=== PATIENT | female | born 1965 | race Caucasian/White ===

== ENCOUNTER 2024-03-07 05:24 | Inpatient (IN) ==
[~2024-03-07] VITALS: Ht 165.1 cm; Wt 72.7 kg
[~2024-03-07 05:24] MED LIST: CYCL-448 PO; LEVO75 PO; OXYB-34 PO; PRAV10TA39 PO; PREG50 PO; [UNRECOGNIZED DRUG - CODE] TD
[2024-03-07 06:11] LABS: BASOPHILS % (AUTO) 1.3 % (0.0-2.0); EOSINOPHILS % (AUTO) 2.1 % (1.0-6.0); HEMATOCRIT 40.6 % (36-46); HEMOGLOBIN 13.5 g/dL (12.0-16.0); LYMPHOCYTES % (AUTO) 47.1 % (22.0-44.0); MEAN CORPUSCULAR HEMOGLOBIN 30.4 pg (26.0-34.0); MEAN CORPUSCULAR HGB CONC 33.3 G/dL (31.0-37.0); MEAN CORPUSCULAR VOLUME 91 fL (80-100); MONOCYTES # (AUTO) 0.5 K/uL (0.1-1.0); MONOCYTES % (AUTO) 8.3 % (2.0-9.0); NEUTROPHILS # (AUTO) 2.6 K/uL (1.8-7.7); NEUTROPHILS % (AUTO) 41.2 % (40.0-70.0); PLATELET COUNT (AUTO) 252 K/uL (150-450); RED BLOOD CELL COUNT(AUTO) 4.45 MIL/uL (4.00-5.20); RED CELL DISTRIBUTION WIDTH 13.1 % (11.5-14.5); WHITE BLOOD COUNT (AUTO) 6.3 K/uL (4.5-11.0)
[2024-03-07] MEDS ORDERED: PHENYLEPHRINE HCL 10 MG/ML VIAL ONE (06:21)
[2024-03-07] MEDS ORDERED: PROPOFOL 1% ISO-OSM 1000 MG/100 ML BOTTLE ONE (06:21)
[2024-03-07] MEDS ORDERED: 0.9% SODIUM CHLORIDE 10 ML VIAL ONE (06:21)
[2024-03-07] MEDS ORDERED: FentaNYL CITRATE PF 100 MCG/2 ML VIAL ONE ×2 (06:21→09:57)
[2024-03-07] MEDS ORDERED: LIDOCAINE/PF 2% 5 ML VIAL ONE (06:21)
[2024-03-07] MEDS ORDERED: SUGAMMADEX SODIUM 200 MG/2 ML VIAL IVP ONE (06:21)
[2024-03-07] MEDS ORDERED: MIDAZOLAM HCL 2 MG/2 ML VIAL ONE (06:21)
[2024-03-07] MEDS ORDERED: ROCURONIUM BROMIDE 10 MG/ML 5 ML VIAL ONE (06:21)
[2024-03-07] MEDS ORDERED: KETAMINE HCL 50 MG/ML 10 ML VIAL ONE (06:21)
[2024-03-07] MEDS ORDERED: ACETAMINOPHEN/ISO-OSM 1000 MG/100 ML BOTTLE IV ONE (06:21)
[2024-03-07] MEDS ORDERED: DEXAMETHASONE SOD PHOS 4 MG/ML VIAL ONE (06:21)
[2024-03-07] MEDS ORDERED: ONDANSETRON HCL 4 MG/2 ML VIAL ONE (06:21)
[2024-03-07] MEDS ORDERED: CeFAZolin SODIUM 1 GM VIAL ONE (06:21)
[2024-03-07] MEDS ORDERED: KETOROLAC TROMETHAMINE 60 MG/2 ML VIAL IM ONE (06:21)
[2024-03-07 06:25] LABS: PROTHROMBIN TIME 10.4 SEC (9.4-11.6)
[2024-03-07 06:26] LABS: ANION GAP 9 mmol/L (8-16); CALCIUM, TOTAL 8.9 mg/dL (8.8-10.5); CARBON DIOXIDE 28 mmol/L (22-29); CHLORIDE 104 mmol/L (98-107); CREATININE 0.75 mg/dL (0.60-1.30); GLOMERULAR FILTR. RATE CALC > 60 mL/min (>60); GLUCOSE,RANDOM 99 mg/dL (70-110); POTASSIUM 4.2 mmol/L (3.5-5.1); SODIUM SERUM 141 mmol/L (136-145); UREA NITROGEN, BLOOD 6 mg/dL (7-18)
[2024-03-07] MEDS: RINGERS SOLUTION,LACTATED 1,000 ML IV ONE (06:45)
[2024-03-07] MEDS: CHLORHEXIDINE GLUCONATE 2% TOWELETTE [2'S/6'S] TP ONE (07:02)
[2024-03-07] MEDS: ETHYL ALCOHOL 62% ANTISEPTIC NASAL SANITIZER 0.6 ML AMPUL NASAL ONE (07:02)
[2024-03-07] MEDS: CeFAZolin 2 GM/DEXTROSE 50 ML IV ONE (07:30)
[2024-03-07] MEDS ORDERED: MEPERIDINE-PF 25 MG/ML VIAL IVP PRN (08:45)
[2024-03-07] MEDS: BUPIVACAINE HCL/PF 0.5% 30 ML VIAL ONE (09:01)
[2024-03-07] MEDS: BUPIVACAINE LIPOSOME/PF 1.3%-13.3MG/ML SUSP 20 ML VIAL INJ ONE (09:02)
[2024-03-07] MEDS: VANCOMYCIN HCL 1 GM VIAL ONE (09:03)
[2024-03-07] MEDS: FentaNYL CITRATE PF 100 MCG/2 ML VIAL IVP PRN (09:57)
[2024-03-07 11:40] VITALS: BP 138/73; PULSE 74; RESP 18; TEMP 98.2; O2SAT 96
[2024-03-07] MEDS ORDERED: MAGNESIUM HYDROXIDE SUSPENSION 30 ML UDCUP PO PRN (13:00)
[2024-03-07] MEDS ORDERED: ONDANSETRON HCL 4 MG/2 ML VIAL IVP PRN (13:00)
[2024-03-07] MEDS ORDERED: HYDR-4069 PO (13:01)
[2024-03-07] MEDS ORDERED: CHOL200074 PO (13:01)
[2024-03-07] MEDS ORDERED: ESTR1PAT84 TD (13:01)
[2024-03-07] MEDS: ACETAMINOPHEN 325 MG TABLET PO PRN (15:23)
[2024-03-07 15:32] LABS: APPEARANCE,URINE CLEAR (CLEAR); BILIRUBIN,URINE NEGATIVE (NEGATIVE); COLOR,URINE LIGHT YELLOW (YELLOW); GLUCOSE, URINE (UA) TRACE mg/dL (NEGATIVE); KETONES,URINE TRACE mg/dL (NEGATIVE); LEUKOCYTE ESTERASE ,URINE NEGATIVE (NEGATIVE); NITRATE,URINE NEGATIVE (NEGATIVE); OCCULT BLOOD,URINE NEGATIVE (NEGATIVE); PH,URINE 5.5 (5.0-8.0); PROTEIN,URINE TRACE mg/dL (NEGATIVE); SPECIFIC GRAVITIY, URINE 1.031 (1.003-1.030); UROBILINOGEN,URINE <=1.0 mg/dL (<=1.0)
[2024-03-07 15:40] VITALS: BP 138/74; PULSE 90; RESP 20; TEMP 98.4; O2SAT 97
[2024-03-07] MEDS ORDERED: HYDROCODONE/ACETAMINOPHEN 5-325 MG TABLET PO PRN (15:45)
[2024-03-07 20:00] VITALS: BP 134/69; PULSE 64; RESP 17; TEMP 97.9; O2SAT 97
[2024-03-07] MEDS: OXYGEN THERAPY IH SCH (20:00)
[2024-03-07] MEDS: DOCUSATE SODIUM 100 MG CAPSULE PO SCH (21:00)
[2024-03-07] MEDS: HYDROCODONE/ACETAMINOPHEN 5-325 MG TABLET PO PRN (21:24)
[2024-03-08 05:21] VITALS: BP 141/64; PULSE 81; RESP 18; TEMP 97.8; O2SAT 96
[2024-03-08 07:53] VITALS: BP 123/59; PULSE 63; RESP 18; TEMP 97.9; O2SAT 98
[2024-03-08] MEDS: FAMOTIDINE 20 MG TABLET PO SCH (07:57)
== END 2024-03-08 14:32 | disposition home or self-care (01) | DRG 460 ==
LOC: 5N 05:24 → 4E 11:03
PROVIDERS: ADMIT Neurological Surgery; ATTEND Neurological Surgery
PROC: 0SG30A0 Fusion of Lumbosacral Joint with Interbody Fusion Device, Anterior Approach, Anterior Column, Open Approach (ICD-10-PCS; principal; 2024-03-07 07:30)
DX: M48.07 Spinal stenosis, lumbosacral region (principal); M51.17 Intervertebral disc disorders with radiculopathy, lumbosacral region; E03.9 Hypothyroidism, unspecified; Z91.018 Allergy to other foods; G89.29 Other chronic pain
CPT/HCPCS: 72100; 80048; 81003; 84443; 85025; 85610; 85730; 87081; C9290; G0378; J0131; J0690; J1100; J1885; J2250; J2405; J2704; J3010; J3370; J3490; J7120; 36415-L1; 36415-TC; Z7610